=== PATIENT | male | born 1990 | race Caucasian/White ===

== ENCOUNTER → 2016-08-26 | Outpatient (CLI) | payer OTHER ==
--- NOTE | 2016-08-28 08:57 | DEXA ---
AP SPINE L1 - L4 1.049 -1.5 -0.9 LT FEMUR TOTAL 0.932 -1.2 -0.8 RT FEMUR TOTAL 0.934 -1.2 -0.8 TOTAL BODY TOTAL OTHER DUAL FEMUR FRAX* ASSESSMENT Risk factors: Unable to do fracture to do patient's age. 10 year probability of fracture Major osteoporotic fracture % Hip fracture % COMMENTS: There is low bone density of the spine and hips. FOLLOW-UP: Recommendation for the next bone density exam: 2 years. JOSUÉ
== END ==
LOC: M WHC 14:30
PROVIDERS: ATTEND Dermatology
DX: M85.89 Other specified disorders of bone density and structure, multiple sites (principal); T88.7XXS Unspecified adverse effect of drug or medicament, sequela

== ENCOUNTER → 2016-10-02 | Outpatient (REF) | payer OTHER | LOC: M LABDRAW1 15:39 | PROVIDERS: ATTEND Internal Medicine Endocrinology, Diabetes & Metabolism | DX: E55.9 Vitamin D deficiency, unspecified (principal) ==

== ENCOUNTER → 2017-07-29 | Outpatient (CLI) | payer OTHER ==
[2017-07-29 08:09] LABS: FASTING LACTOSE 87 MG/DL
[2017-07-29 08:17] LABS: 1/4 HR LACTOSE 114 MG/DL
[2017-07-29 08:26] LABS: 1/2 HR LACTOSE 113 MG/DL
[2017-07-29 09:09] LABS: 1 HR LACTOSE 101 MG/DL
[2017-07-29 10:13] LABS: 1.5 HR LACTOSE 77 MG/DL
[2017-07-29 10:13] LABS: 2 HR LACTOSE 84 MG/DL
== END ==
LOC: M LAB 06:56
DX: R10.33 Periumbilical pain (principal)

== ENCOUNTER 2017-10-29 08:52 | Day surgery (SDC) | payer OTHER ==
[~2017-10-29 08:52] MED LIST: LIDOCAINE 2% MDV 20 ML VIAL As Ordered; PROPOFOL 200 MG/20 ML VIAL As Ordered
[2017-10-29] MEDS: NS 1,000 ML IV (09:48)
== END 2017-10-29 12:46 | disposition home or self-care (01) ==
LOC: M OPP 08:52
DX: R10.13 Epigastric pain (principal); K82.8 Other specified diseases of gallbladder; K29.70 Gastritis, unspecified, without bleeding; R07.9 Chest pain, unspecified; K21.9 Gastro-esophageal reflux disease without esophagitis; R12 Heartburn; M81.0 Age-related osteoporosis without current pathological fracture; R06.83 Snoring; Z92.21 Personal history of antineoplastic chemotherapy; Z79.899 Other long term (current) drug therapy
CPT/HCPCS: 43239

== ENCOUNTER → 2017-11-07 | Outpatient (CLI) | payer OTHER | LOC: M RAD 08:07 | DX: R10.11 Right upper quadrant pain (principal) | CPT/HCPCS: J2805 ==

== ENCOUNTER → 2018-05-08 | Outpatient (CLI) | payer OTHER ==
[~2018-05-08] MED LIST changes: +DOXY100T16 PO; +FLAX10002 PO; -LIDOCAINE 2% MDV 20 ML VIAL As Ordered; -PROPOFOL 200 MG/20 ML VIAL As Ordered; +VITA400C7 PO; +[UNRECOGNIZED DRUG - OTHER] PO; +[UNRECOGNIZED DRUG - OTHER] PO
--- NOTE | 2018-05-08 09:43 | REP ---
Clinical: Hepatic cysts. Technique: Real time galo scale ultrasound examination using curved array transducer. Findings: The liver is normal in contour, parenchymal echogenicity and size demonstrating multiple scattered cysts measuring up to 1.8 cm in the right lower lobe and 1.4 cm in the left lobe. The spleen is upper limits of normal in size with suggestions for a vague hyperechoic lesion in the mid spleen measuring approximately 2.4 x 1.6 x 2.0 cm which cannot be corroborated on recent CT but may represent flash filling hemangioma/lymphangioma. Pancreas is unremarkable. Gallbladder demonstrates multiple polyps measuring up to 11 x 9 x 9 mm without obvious gallstones, wall thickening or pericholecystic fluid. No sonographic Victor's sign was elicited during examination. No biliary ductal dilatation is appreciated and the common bile duct measures 1.9 mm diameter. The bilateral kidneys are normal in contour, size, echogenicity without hydronephrosis, nephrolithiasis, cystic or renal mass lesion. Right kidney measures 11.3 x 4.4 x 3.6 cm. Left kidney measures 11.9 x 4.5 x 5.0 cm. Abdominal aorta is normal in appearance and measures 1.7 cm maximal diameter. No ascites. Impression: 1. Innumerable simple appearing hepatic cysts measuring up to 18 mm. 2. Few gallbladder polyps measuring up to 11 mm consistent with finding on prior CT. 3. 2.4 cm subtle hyperechoic lesion in the mid spleen may represent hemangioma/lymphangioma and warrants 6 - 9 month follow-up. 4. Bilateral kidneys are normal in appearance without cysts or obvious abnormality. Electronically Signed by Dean Hummel MD 05/08/2018 09:34 A
== END ==
LOC: M RAD 08:40
PROVIDERS: ATTEND Internal Medicine Gastroenterology
DX: K76.89 Other specified diseases of liver (principal); K82.4 Cholesterolosis of gallbladder

== ENCOUNTER 2018-06-26 06:51 | Day surgery (SDC) | payer OTHER ==
[~2018-06-26] VITALS: Ht 172.7 cm; Wt 68.9 kg
[~2018-06-26 06:51] MED LIST changes: +NS 1,000 ML IV ONE
[2018-06-26] MEDS ORDERED: LIDOCAINE 2% INJ 100 MG/5 ML SDV (FOR ANES.) As Ordered ONE (07:08)
[2018-06-26] MEDS ORDERED: PROPOFOL 200 MG/20 ML VIAL As Ordered ONE ×2 (07:08→07:47)
--- NOTE | 2018-06-26 08:01 | ROOR ---
Patient Name: Jose Vee Procedure Date: 06/26/2018 7:27 AM Date of : 1990 Age: 27 Room: [facility] Gender: Male Note Status: Finalized Procedure: Colonoscopy Indications: Change in bowel habits, Constipation, Diarrhea Providers: Lewis Bradley MD Referring MD: Ruth BALDERAS MD Requesting Provider: Medicines: Monitored Anesthesia Care Complications: No immediate complications. Procedure: Pre-Anesthesia Assessment: - Prior to the procedure, a History and Physical was performed, and patient medications and allergies were reviewed. The patient is competent. The risks and benefits of the procedure and the sedation options and risks were discussed with the patient. All questions were answered and informed consent was obtained. Patient identification and proposed procedure were verified by the physician, the nurse and the anesthesiologist in the procedure room. Mental Status Examination: alert and oriented. Airway Examination: normal oropharyngeal airway and neck mobility. Respiratory Examination: clear to auscultation. CV Examination: normal. Prophylactic Antibiotics: The patient does not require prophylactic antibiotics. Prior Anticoagulants: The patient has taken no previous anticoagulant or antiplatelet agents. ASA Grade Assessment: II - A patient with mild systemic disease. After reviewing the risks and benefits, the patient was deemed in satisfactory condition to undergo the procedure. The anesthesia plan was to use monitored anesthesia care (MAC). Immediately prior to administration of medications, the patient was re-assessed for adequacy to receive sedatives. The heart rate, respiratory rate, oxygen saturations, blood pressure, adequacy of pulmonary ventilation, and response to care were monitored throughout the procedure. The physical status of the patient was re-assessed after the procedure. The Colonoscope was introduced through the anus and advanced to the terminal ileum, with identification of the appendiceal orifice and IC valve. The colonoscopy was performed without difficulty. The patient tolerated the procedure well. The quality of the bowel preparation was good. The terminal ileum, ileocecal valve, appendiceal orifice, and rectum were photographed. Scope insertion time was 3 minutes. Scope withdrawal time was 9 minutes. The total duration of the procedure was 12 minutes. Findings: The perianal and digital rectal examinations were normal. The terminal ileum appeared normal. Patchy severe mucosal changes characterized by congestion (edema), erosions, granularity, loss of vascularity, mucus and confluent ulcerations were found in the transverse colon, in the ascending colon and in the cecum. Six biopsies were obtained from cecum to transverse colon with cold forceps for histology. Verification of patient identification for the specimen was done by the physician and nurse using the patient's name, date and medical record number. Estimated blood loss was minimal. Normal mucosa was found from rectum to descending colon. Biopsies were taken with a cold forceps for histology. Non-bleeding external and internal hemorrhoids were found during retroflexion. The hemorrhoids were medium-sized. Impression: - The examined portion of the ileum was normal. - Patchy severe mucosal changes were found in the transverse colon, in the ascending colon and in the cecum secondary to colitis. - Normal mucosa from rectum to descending colon. Biopsied. - Non-bleeding external and internal hemorrhoids. - Six biopsies were obtained from cecum to transverse colon. Recommendation: - Patient has a contact number available for emergencies. The signs and symptoms of potential delayed complications were discussed with the patient. Return to normal activities tomorrow. Written discharge instructions were provided to the patient. - Resume previous diet. - Continue present medications. - Await pathology results. - Repeat colonoscopy in 6 months to check healing. - Return to primary care physician. - Return to GI clinic in [facility] (address [address], [address], [place], [address]) in 4 -- 6 weeks. Please call GI clinic @ [phone] for apppointment date and time. Lewis Bradley MD Lewis Bradley MD 06/26/2018 8:01:32 AM This report has been signed electronically. Number of Addenda: 0 Note Initiated On: 06/26/2018 7:27 AM Estimated Blood Loss: Estimated blood loss was minimal.
[2018-06-26 08:40] VITALS: BP 106/57
== END 2018-06-26 08:48 | disposition home or self-care (01) ==
LOC: M OPP 06:51
PROVIDERS: ATTEND Internal Medicine Gastroenterology
DX: K64.8 Other hemorrhoids (principal); K52.9 Noninfective gastroenteritis and colitis, unspecified; R19.4 Change in bowel habit; K59.00 Constipation, unspecified; R19.7 Diarrhea, unspecified

== ENCOUNTER → 2020-05-05 | Outpatient (CLI) | payer OTHER ==
[~2020-05-05] MED LIST changes: -DOXY100T16 PO; +DOXY100T27 PO; +FUROSEMIDE 20MG/2ML VIAL (J1940) As Ordered ONE; -NS 1,000 ML IV ONE
--- NOTE | 2020-05-05 12:24 | REP ---
INDICATION: HYDRONEPHROSIS. Six weeks post left ureteral stent removal. History of left UPJ obstruction. COMPARISON: Comparison CT study February 12, 2018. Comparison renal sonography is from the day of this exam, 05 May 2020.. TECHNIQUE: 8.6 mCi of technetium 99 M Mag 3 is injected and posterior flow and excretory phase images are acquired. Renal cortical regions of interest are drawn and time activity curves are plotted for renal function analysis. 20 mg of intravenous Lasix is administered and post Lasix washout renograms are acquired. FINDINGS: Posterior flow study shows symmetric normal perfusion of the renal beds bilaterally. No intrarenal mass is seen. Excretory phase images demonstrate moderate left-sided hydronephrosis and renal pelvic dilation. On the pre Lasix postvoid images the hydronephrosis on the left persists. Differential renal function analysis is normal with 53% of overall renal cortical call counts coming from the left kidney and 47% from the right. Time to peak activity is normal bilaterally, less than 2 minutes. Time to half max activity is normal bilaterally as well, 10.5 minutes on the left and 8.9 minutes on the right. Post Lasix renogram imaging demonstrates relatively slow washout. The time to half Lasix on the left is 14.3 minutes. Time to half Lasix activity on the right is 2.5 minutes. IMPRESSION: The left renal pelvis is dilated with left-sided hydronephrosis and somewhat delayed sluggish post Lasix washout on the left is observed. A degree of obstructive uropathy persists. Cortical excretion curves are normal bilaterally. <Electronically signed by Yuriy Santana > 05/05/20 [id number]
--- NOTE | 2020-05-05 13:09 | REP ---
INDICATION: HYDRONEPHROSIS. This study was performed by mistake as the order was apparently misread. The patient is status post recent removal of left ureteral stent. COMPARISON: Comparison CT study from February 12, 2018.. TECHNIQUE: Urinary tract sonography is performed. FINDINGS: Scanning of the level of the urinary bladder shows no abnormality. The urinary bladder is empty at the time of scanning.. Renal cortical echogenicity pattern is normal bilaterally and contours are smooth. There is no evidence of hydronephrosis, cyst, mass, or calculus in either kidney. The right kidney measures 11.5 x 4.5 x 4.4 cm. Left renal dimensions are 11.1 x 4.4 x 5.1 cm. IMPRESSION: Normal urinary tract sonography. No hydronephrosis seen on either side at the time of this ultrasound. <Electronically signed by Yuriy Santana > 05/05/20 [id number]
== END ==
LOC: M RAD 09:46
PROVIDERS: ATTEND Physician Assistant
DX: N13.30 Unspecified hydronephrosis (principal)
CPT/HCPCS: 78708; A9562; J1940